=== PATIENT | male | born 1970 | race Caucasian/White ===

== ENCOUNTER 2018-07-21 15:59 | Observation (INO) | payer BC ==
[2018-07-21] MEDS ORDERED: Sodium Chloride 0.9% 10 ML Syringe FLUSH PRN (16:02)
[2018-07-21] MEDS ORDERED: Sodium Chloride 0.9% 2.5 ML Syringe FLUSH PRN (16:02)
--- NOTE | 2018-07-21 16:03 | EDM.PDOC ---
ED HPI GENERAL MEDICAL PROBLEM - General Chief Complaint: Chest Pain Stated Complaint: CHEST PAIN Time Seen by Provider: 07/21/18 16:01 Source of Information: Reports: Patient History Limitations: Reports: No Limitations - History of Present Illness INITIAL COMMENTS - FREE TEXT/NARRATIVE: History of present illness: []Patient has had a cough for 2 months that has been treated with antibiotics without improvement last night at 2 AM he developed chest pain that recurred throughout the night and today. His last episode this afternoon at 2:00 and lasted approximately 30 minutes and has not recurred. His pain is 0/10 on arrival to the ED however while in the ED had an episode of 2/10 chest pain without any other symptoms. Review of systems: As per history of present illness and below otherwise all systems reviewed and negative. Past medical history: As per history of present illness and as reviewed below otherwise noncontributory. Surgical history: As per history of present illness and as reviewed below otherwise noncontributory. Social history: No reported history of drug or alcohol abuse. Family history: As per history of present illness and as reviewed below otherwise noncontributory. Physical exam: General: Well developed, well nourished in NAD HEENT: Atraumatic, normocephalic, pupils reactive, negative for conjunctival pallor or scleral icterus, mucous membranes moist, throat clear, neck supple, nontender, trachea midline. Lungs faint expiratory wheeze right lung [place] to auscultation, distress or accessory muscle use breath sounds equal bilaterally, chest nontender. Heart: S1S2, regular, negative for clicks, rubs, or JVD. No peripheral edema Abdomen: NABS, Soft, nondistended, nontender. Negative for masses or hepatosplenomegaly. Negative for costovertebral tenderness. Pelvis: Stable nontender. Genitourinary: Deferred. Rectal: Deferred. Extremities: Atraumatic, negative for cords or calf pain. Neurovascular unremarkable. No calf tenderness Neuro: Awake, alert, oriented. Cranial nerves II through XII unremarkable. Cerebellum unremarkable. Motor and sensory unremarkable throughout. Exam nonfocal. Skin:warm and dry Diagnostics: EKG, CBC, chemistry, troponin chest [id number] Therapeutics: Aspirin, nitroglycerin ED Course: Patient had a brief episode of 2/10 chest pain with a noted blood pressure of 150/115 at the time. Chest pain lasted 1-2 minutes and subsided spontaneously. He had no other symptoms with the pain. Dr. Ayala was consulted at 17:45 for admit to rule out OR Impression: Chest pain Prescriptions: Plan: Admit Definitive disposition and diagnosis as appropriate pending reevaluation and review of above. left chest Pain Score (Numeric/FACES): 2 - Related Data Allergies Allergy/AdvReac Type Severity Reaction Status Date / Time No Known Allergies Allergy Verified 07/21/18 16:02 Home Meds: Home Meds Atenolol 1 tab PO DAILY 07/21/18 [History] ED ROS GENERAL - Review of Systems Review Of Systems: ROS reveals no pertinent complaints other than HPI. ED EXAM, GENERAL - Physical Exam Exam: See Below (See history of present illness) Course - Vital Signs Last Recorded V/S: Last Vital Signs Temp 97.3 F 07/21/18 16:00 Pulse 88 07/21/18 17:51 Resp 16 07/21/18 17:44 BP 133/91 H 07/21/18 17:51 Pulse Ox 97 07/21/18 17:44 - Orders/Labs/Meds Orders: Active Orders 24 hr Category Date Time Status Admission Status [Patient Status] [ADT] Stat ADT 07/21/18 17:52 Active EKG Documentation Completion [RC] STAT Care 07/21/18 16:03 Active Nitroglycerin [Nitrostat] Med 07/21/18 17:31 Active 0.4 mg SL Q5M PRN Sodium Chloride 0.9% [Saline Flush] Med 07/21/18 16:02 Active 10 ml FLUSH ASDIRECTED PRN Sodium Chloride 0.9% [Saline Flush] Med 07/21/18 16:02 Active 2.5 ml FLUSH ASDIRECTED PRN Saline Lock Insert [OM.PC] Stat Oth 07/21/18 16:02 Ordered Medication Orders Nitroglycerin (Nitrostat) 0.4 mg SL Q5M PRN PRN Reason: Chest Pain Last Admin: 07/21/18 17:43 Dose: 0.4 mg Sodium Chloride (Saline Flush) 10 ml FLUSH ASDIRECTED PRN PRN Reason: Keep Vein Open Last Admin: 07/21/18 16:14 Dose: 10 ml Sodium Chloride (Saline Flush) 2.5 ml FLUSH ASDIRECTED PRN PRN Reason: Keep Vein Open Last Admin: 07/21/18 16:14 Dose: 2.5 ml Labs: Laboratory Tests 07/21/18 07/21/18 07/21/18 Range/Units 16:02 16:02 16:02 WBC 9.84 (4.0-11.0) K/uL RBC 4.83 (4.50-5.90) M/uL Hgb 14.5 (13.0-17.0) g/dL Hct 43.2 (38.0-50.0) % MCV 89.4 (80.0-98.0) fL MCH 30.0 (27.0-32.0) pg MCHC 33.6 (31.0-37.0) g/dL RDW Std Deviation 41.3 (28.0-62.0) fl RDW Coeff of Mile 13 (11.0-15.0) % Plt Count 240 (150-400) K/uL MPV 10.90 (7.40-12.00) fL Neut % (Auto) 53.9 (48.0-80.0) % Lymph % (Auto) 35.0 (16.0-40.0) % [place] % (Auto) 8.1 (0.0-15.0) % Eos % (Auto) 2.6 (0.0-7.0) % Baso % (Auto) 0.4 (0.0-1.5) % Neut # (Auto) 5.3 (1.4-5.7) K/uL Lymph # (Auto) 3.4 H (0.6-2.4) K/uL [place] # (Auto) 0.8 (0.0-0.8) K/uL Eos # (Auto) 0.3 (0.0-0.7) K/uL Baso # (Auto) 0.0 (0.0-0.1) K/uL Nucleated RBC % 0.0 /100WBC Nucleated RBCs # 0 K/uL Sodium 139 (136-148) mmol/L Potassium 4.4 (3.5-5.1) mmol/L Chloride 104 (98-107) mmol/L Carbon Dioxide 28.3 (21.0-32.0) mmol/L BUN 15 (7.0-18.0) mg/dL Creatinine 1.0 (0.8-1.3) mg/dL Est Cr Clr Drug Dosing 83.54 mL/min Estimated GFR (MDRD) > 60.0 ml/min Glucose 120 H (74-106) mg/dL Calcium 9.5 (8.5-10.1) mg/dL Total Bilirubin 0.3 (0.2-1.0) mg/dL AST 16 (15-37) IU/L ALT 36 (14-63) IU/L Alkaline Phosphatase 119 H (46-116) U/L Troponin I < 0.050 (0.000-0.056) ng/mL B-Natriuretic Peptide (<100) PG/ML Total Protein 7.9 (6.4-8.2) g/dL Albumin 3.6 (3.4-5.0) g/dL Globulin 4.3 H (2.6-4.0) g/dL Albumin/Globulin Ratio 0.8 L (0.9-1.6) Meds: Medications Generic Name Dose Route Start Last Admin Trade Name Markq PRN Reason Stop Dose Admin Nitroglycerin 0.4 mg 07/21/18 17:31 07/21/18 17:43 Nitrostat SL 0.4 mg Q5M PRN Administration Chest Pain Sodium Chloride 10 ml 07/21/18 16:02 07/21/18 16:14 Saline Flush FLUSH 10 ml ASDIRECTED PRN Administration Keep Vein Open Sodium Chloride 2.5 ml 07/21/18 16:02 07/21/18 16:14 Saline Flush FLUSH 2.5 ml ASDIRECTED PRN Administration Keep Vein Open Discontinued Medications Generic Name Dose Route Start Last Admin Trade Name Leo PRN Reason Stop Dose Admin Aspirin 324 mg 07/21/18 17:31 07/21/18 17:41 Aspirin PO 07/21/18 17:32 324 mg ONETIME ONE Administration Metoprolol Succinate 25 mg 07/21/18 17:37 07/21/18 17:51 Toprol Xl PO 07/21/18 17:38 25 mg ONETIME ONE Administration Departure - Departure Time of Disposition: 17:47 Disposition: Refer to Observation Condition: Good Clinical Impression: Hypertensive urgency Chest pain Qualifiers: Chest pain type: unspecified Qualified Code(s): R07.9 - Chest pain, unspecified Referrals: PCP,None [Primary Care Provider] - Forms: ED Department Discharge - My Orders Last 24 Hours: My Active Orders 07/21/18 16:02 Sodium Chloride 0.9% [Saline Flush] 10 ml FLUSH ASDIRECTED PRN Sodium Chloride 0.9% [Saline Flush] 2.5 ml FLUSH ASDIRECTED PRN Saline Lock Insert [OM.PC] Stat 07/21/18 16:03 EKG Documentation Completion [RC] STAT 07/21/18 17:31 Nitroglycerin [Nitrostat] 0.4 mg SL Q5M PRN 07/21/18 17:52 Admission Status [Patient Status] [ADT] Stat - Assessment/Plan Last 24 Hours: My Active Orders 07/21/18 16:02 Sodium Chloride 0.9% [Saline Flush] 10 ml FLUSH ASDIRECTED PRN Sodium Chloride 0.9% [Saline Flush] 2.5 ml FLUSH ASDIRECTED PRN Saline Lock Insert [OM.PC] Stat 07/21/18 16:03 EKG Documentation Completion [RC] STAT 07/21/18 17:31 Nitroglycerin [Nitrostat] 0.4 mg SL Q5M PRN 07/21/18 17:52 Admission Status [Patient Status] [ADT] Stat
--- NOTE | 2018-07-21 16:29 | CR ---
EXAMINATION: Portable chest radiograph. HISTORY: Shortness of breath. FINDINGS: The trachea is midline. The cardiomediastinal silhouette is within normal limits. No pulmonary infiltrates, effusions or pneumothorax. Osseous structures appear unremarkable. IMPRESSION: No acute cardiopulmonary process.
[2018-07-21 17:27] LABS: CHLORIDE,CL 104 mmol/L (98-107); SODIUM,NA 139 mmol/L (136-148)
[2018-07-21] MEDS ORDERED: Aspirin 81 MG Tab.Chew PO ONE (17:31)
[2018-07-21] MEDS ORDERED: Nitroglycerin 0.4 MG Tab.SL SL PRN ×2 (17:31→18:08)
[2018-07-21] MEDS ORDERED: Metoprolol Succinate 25 MG Tab.ER PO ONE (17:37)
[2018-07-21] MEDS ORDERED: Ondansetron 4 MG Tab.DIS PO PRN (18:04)
[2018-07-21] MEDS ORDERED: Polyethylene Glycol 3350 Powder 17 GM Packet PO PRN (18:04)
[2018-07-21] MEDS ORDERED: Ondansetron 4 MG/2 ML SDV IVPUSH PRN (18:04)
[2018-07-21] MEDS ORDERED: Albuterol/Ipratropium 3.0-0.5 MG/3 ML Neb Soln NEB PRN (18:04)
[2018-07-21] MEDS ORDERED: Acetaminophen 325 MG Tab PO PRN (18:04)
[2018-07-21] MEDS ORDERED: Docusate Sodium 100 MG Cap PO PRN (18:04)
[2018-07-21] MEDS ORDERED: Temazepam 15 MG Cap PO PRN (18:04)
[2018-07-21] MEDS ORDERED: Ibuprofen 800 MG Tab PO PRN (18:04)
[2018-07-21] MEDS ORDERED: Ketorolac 30 MG/ML SDV IV PRN (18:04)
[2018-07-21] MEDS ORDERED: Morphine 10 MG/ML Syringe IVPUSH PRN (18:04)
[2018-07-21] MEDS ORDERED: Albuterol 0.083% 2.5 MG/3 ML Neb Soln NEB ONE (18:07)
[2018-07-21] MEDS ORDERED: Labetalol 20 MG/4 ML Syringe IVPUSH ONE (18:13)
[2018-07-21] MEDS ORDERED: Enoxaparin 40 MG/0.4 ML Syringe SUBCUT SCH (18:15)
--- NOTE | 2018-07-21 18:26 | PCM.HP ---
<Robert LeeandaLuis - Last Filed: 07/21/18 18:15> H&P History of Present Illness - General Date of Service: 07/21/18 Admit Problem/Dx: Admission Diagnosis/Problem Admission Diagnosis/Problem Chest pain - History of Present Illness Initial Comments - Free Text/Narative: Jeffery Sinclair is a 48 y/o male who presents today to the ED complaining of chest pain. He states that he started coughing this morning and since then he has had chest pain rated 8/10, now resolved. No diaphoresis or radiation to left arm. In addition, he states he has been having on and off coughing for the past 2 months. He denies any history of asthma. He is a former smoker, quit 10 years ago. No fevers. He is originally from [place]. Has no PCP in town. There is a family history of heart disease. He denies any diabetes or dyslipidemia. Denies acid reflux. No allergies. No nausea, vomiting, abdominal pain, dysuria, diarrhea. left chest Pain Score (Numeric/FACES): 2 - Related Data Allergies/Adverse Reactions: Allergies Allergy/AdvReac Type Severity Reaction Status Date / Time No Known Allergies Allergy Verified 07/21/18 16:02 Home Medications: Home Meds Aspirin 81 mg PO DAILY tab.chew 07/22/18 [Rx] Losartan [Cozaar] 50 mg PO DAILY #30 tab 07/22/18 [Rx] Omeprazole 20 mg PO DAILY #30 cap.sr 07/22/18 [Rx] Past Medical History HEENT History: Reports: None Cardiovascular History: Reports: Hypertension Respiratory History: Reports: None Genitourinary History: Reports: None Musculoskeletal History: Reports: None Neurological History: Reports: None Psychiatric History: Reports: None Endocrine/Metabolic History: Reports: None Hematologic History: Reports: None Immunologic History: Reports: None Oncologic (Cancer) History: Reports: None Dermatologic History: Reports: None - Infectious Disease History Infectious Disease History: Reports: Chicken Pox - Past Surgical History Head Surgeries/Procedures: Reports: None GI Surgical History: Reports: Appendectomy Social & Family History - Family History Family Medical History: Noncontributory - Tobacco Use Smoking Status *Q: Never Smoker Second Hand Smoke Exposure: No - Caffeine Use Caffeine Use: Reports: None - Recreational Drug Use Recreational Drug Use: No H&P Review of Systems - Review of Systems: Review Of Systems: ROS reveals no pertinent complaints other than HPI. Exam - Exam Exam: See Below - Vital Signs Vital Signs: Last Vital Signs Temp 36.3 C 07/21/18 16:00 Pulse 88 07/21/18 17:51 Resp 16 07/21/18 17:44 BP 133/91 H 07/21/18 17:51 Pulse Ox 97 07/21/18 17:44 Weight: 117.027 kg - Exam General: Alert, Oriented, Cooperative HEENT: Conjunctiva Clear, Mucosa Moist & [place], Posterior Pharynx Clear Lungs: Clear to Auscultation, Normal Respiratory Effort, Wheezing Cardiovascular: Regular Rate, Regular Rhythm GI/Abdominal Exam: Normal Bowel Sounds, Soft, Non-Tender, No Distention Back Exam: Normal Inspection Extremities: Normal Inspection, Non-Tender, No Pedal Edema Skin: Warm, Dry Neurological: Cranial Nerves Intact Neuro Extensive - Mental Status: Alert, Oriented x3 - Patient Data Lab Results Last 24 hrs: Laboratory Results - last 24 hr 07/21/18 07/21/18 07/21/18 Range/Units 16:02 16:02 16:02 WBC 9.84 (4.0-11.0) K/uL RBC 4.83 (4.50-5.90) M/uL Hgb 14.5 (13.0-17.0) g/dL Hct 43.2 (38.0-50.0) % MCV 89.4 (80.0-98.0) fL MCH 30.0 (27.0-32.0) pg MCHC 33.6 (31.0-37.0) g/dL RDW Std Deviation 41.3 (28.0-62.0) fl RDW Coeff of Mile 13 (11.0-15.0) % Plt Count 240 (150-400) K/uL MPV 10.90 (7.40-12.00) fL Neut % (Auto) 53.9 (48.0-80.0) % Lymph % (Auto) 35.0 (16.0-40.0) % [place] % (Auto) 8.1 (0.0-15.0) % Eos % (Auto) 2.6 (0.0-7.0) % Baso % (Auto) 0.4 (0.0-1.5) % Neut # (Auto) 5.3 (1.4-5.7) K/uL Lymph # (Auto) 3.4 H (0.6-2.4) K/uL [place] # (Auto) 0.8 (0.0-0.8) K/uL Eos # (Auto) 0.3 (0.0-0.7) K/uL Baso # (Auto) 0.0 (0.0-0.1) K/uL Nucleated RBC % 0.0 /100WBC Nucleated RBCs # 0 K/uL Sodium 139 (136-148) mmol/L Potassium 4.4 (3.5-5.1) mmol/L Chloride 104 (98-107) mmol/L Carbon Dioxide 28.3 (21.0-32.0) mmol/L BUN 15 (7.0-18.0) mg/dL Creatinine 1.0 (0.8-1.3) mg/dL Est Cr Clr Drug Dosing 83.54 mL/min Estimated GFR (MDRD) > 60.0 ml/min Glucose 120 H (74-106) mg/dL Calcium 9.5 (8.5-10.1) mg/dL Total Bilirubin 0.3 (0.2-1.0) mg/dL AST 16 (15-37) IU/L ALT 36 (14-63) IU/L Alkaline Phosphatase 119 H (46-116) U/L Troponin I < 0.050 (0.000-0.056) ng/mL B-Natriuretic Peptide (<100) PG/ML Total Protein 7.9 (6.4-8.2) g/dL Albumin 3.6 (3.4-5.0) g/dL Globulin 4.3 H (2.6-4.0) g/dL Albumin/Globulin Ratio 0.8 L (0.9-1.6) Result Diagrams: 07/21/18 16:02 07/21/18 16:02 Problem List Initiated/Reviewed/Updated: Yes Orders Last 24hrs: Active Orders 24 hr Category Date Time Status Patient Status [ADT] Routine ADT 07/21/18 18:02 Ordered Bedrest Bathroom Privileges [RC] ASDIRECTED Care 07/21/18 18:02 Ordered Cardiac Monitoring [RC] CONTINUOUS Care 07/21/18 18:03 Ordered EKG Documentation Completion [RC] STAT Care 07/21/18 16:03 Active Oxygen Therapy [RC] PRN Care 07/21/18 18:02 Ordered RT Aerosol Therapy [RC] ASDIRECTED Care 07/21/18 18:07 Ordered RT Aerosol Therapy [RC] ASDIRECTED Care 07/21/18 18:08 Ordered VTE/DVT Education [RC] PER UNIT ROUTINE Care 07/21/18 18:02 Ordered Vital Signs [RC] Q4H Care 07/21/18 18:02 Ordered Heart Healthy Diet [DIET] Diet 07/22/18 Breakfast Ordered Echo 2D wo Cont [US] Stat Exams 07/22/18 08:00 Ordered COMPREHENSIVE METABOLIC PN,CMP [CHEM] AM Lab 07/22/18 05:11 Ordered GLYCOSYLATED HEMOGLOBIN,HGBA1C [CHEM] AM Lab 07/22/18 05:11 Ordered LIPID PANEL [CHEM] AM Lab 07/22/18 05:11 Ordered TROPONIN I [CHEM] Q6H Lab 07/21/18 23:00 Ordered TROPONIN I [CHEM] Q6H Lab 07/22/18 05:00 Ordered TSH [CHEM] AM Lab 07/22/18 05:11 Ordered Acetaminophen [Tylenol] Med 07/21/18 18:04 Ordered 650 mg PO Q4H PRN Albuterol/Ipratropium [DuoNeb 3.0-0.5 MG/3 ML] Med 07/21/18 18:04 Ordered 3 ml NEB Q4HRRT PRN Aspirin Med 07/22/18 09:00 Ordered 81 mg PO DAILY Docusate Sodium [Colace] Med 07/21/18 18:04 Ordered 100 mg PO BID PRN Enoxaparin [Lovenox] Med 07/21/18 18:15 Ordered 40 mg SUBCUT Q24H Ibuprofen [Motrin] Med 07/21/18 18:04 Ordered 800 mg PO Q6H PRN Ketorolac [Toradol] Med 07/21/18 18:04 Ordered 30 mg IV Q6H PRN Morphine Med 07/21/18 18:04 Ordered 2 mg IVPUSH Q2H PRN Nitroglycerin [Nitrostat] Med 07/21/18 17:31 Active 0.4 mg SL Q5M PRN Nitroglycerin [Nitrostat] Med 07/21/18 18:08 Ordered 0.4 mg SL Q5M PRN Ondansetron [Zofran ODT] Med 07/21/18 18:04 Ordered 4 mg PO Q4H PRN Ondansetron [Zofran] Med 07/21/18 18:04 Ordered 4 mg IVPUSH Q4H PRN Polyethylene Glycol 3350 [MiraLAX] Med 07/21/18 18:04 Ordered 17 gm PO DAILY PRN Sodium Chloride 0.9% [Saline Flush] Med 07/21/18 16:02 Active 10 ml FLUSH ASDIRECTED PRN Sodium Chloride 0.9% [Saline Flush] Med 07/21/18 16:02 Active 2.5 ml FLUSH ASDIRECTED PRN Temazepam [Restoril] Med 07/21/18 18:04 Ordered 15 mg PO BEDTIME PRN Saline Lock Insert [OM.PC] Stat Oth 07/21/18 16:02 Ordered Resuscitation Status Routine Resus Stat 07/21/18 18:02 Ordered Medication Orders Acetaminophen (Tylenol) 650 mg PO Q4H PRN PRN Reason: Pain (Mild 1-3)/fever Albuterol/Ipratropium (Duoneb 3.0-0.5 Mg/3 Ml) 3 ml NEB Q4HRRT PRN PRN Reason: Shortness Of Breath/wheezing Aspirin (Aspirin) 81 mg PO DAILY HAIR Docusate Sodium (Colace) 100 mg PO BID PRN PRN Reason: Constipation Enoxaparin Sodium (Lovenox) 40 mg SUBCUT Q24H HAIR Ibuprofen (Motrin) 800 mg PO Q6H PRN PRN Reason: Pain (mild 1-3) Ketorolac Tromethamine (Toradol) 30 mg IV Q6H PRN PRN Reason: Pain (moderate 4-6) Morphine Sulfate (Morphine) 2 mg IVPUSH Q2H PRN PRN Reason: Pain (severe 7-10) Stop: 07/22/18 18:05 Nitroglycerin (Nitrostat) 0.4 mg SL Q5M PRN PRN Reason: Chest Pain Last Admin: 07/21/18 17:43 Dose: 0.4 mg Nitroglycerin (Nitrostat) 0.4 mg SL Q5M PRN PRN Reason: Chest Pain Ondansetron HCl (Zofran Odt) 4 mg PO Q4H PRN PRN Reason: nausea, able to take PO Ondansetron HCl (Zofran) 4 mg IVPUSH Q4H PRN PRN Reason: Nausea Polyethylene Glycol (Miralax) 17 gm PO DAILY PRN PRN Reason: Constipation Sodium Chloride (Saline Flush) 10 ml FLUSH ASDIRECTED PRN PRN Reason: Keep Vein Open Last Admin: 07/21/18 16:14 Dose: 10 ml Sodium Chloride (Saline Flush) 2.5 ml FLUSH ASDIRECTED PRN PRN Reason: Keep Vein Open Last Admin: 07/21/18 16:14 Dose: 2.5 ml Temazepam (Restoril) 15 mg PO BEDTIME PRN PRN Reason: Sleep Assessment/Plan Comment:: A: 1. Chest pain, r/o ACS 2. Hypertension 3. Bilateral wheezing 4. Morbid obesity P: 1. Admit as observation to the medical floor. 2. Vitals, I/O per floor routine. Telemetry. 3. Activity: bed rest with bathroom privileges 4. Diet: Cardiac 5. DVT prophylaxis: Lovenox 6. Code status: FULL CODE 1. Chest pain. I suspect that his chest pain is secondary to his coughing spells. He may have underlying reactive airways since he has expiratory wheezing. However, he has a family history of heart disease, hypertension and former smoker. Will trend troponins and order Echo for the morning. Check HgA1c and lipid panel in the morning. 2. Hypertension. Ordered labetalol IV PRN for SBP>160 or DBP>90. Will recheck in the morning. Dispo: likely dc tomorrow. <Fidel Ayala - Last Filed: 07/22/18 07:58> H&P History of Present Illness - General Admit Problem/Dx: Admission Diagnosis/Problem Admission Diagnosis/Problem Chest pain I have seen and examined the patient independently of medical education manager. I have discussed the case with the resident. I agree with the assessment and plan of care as outlined for this patient. Please see orders. Exam - Vital Signs Vital Signs: Last Vital Signs Temp 36.2 C 07/22/18 04:00 Pulse 75 07/22/18 04:00 Resp 19 07/22/18 04:00 BP 125/79 07/22/18 04:00 Pulse Ox 96 07/22/18 04:00 - Patient Data Lab Results Last 24 hrs: Laboratory Results - last 24 hr 07/21/18 07/21/18 07/21/18 Range/Units 16:02 16:02 16:02 WBC 9.84 (4.0-11.0) K/uL RBC 4.83 (4.50-5.90) M/uL Hgb 14.5 (13.0-17.0) g/dL Hct 43.2 (38.0-50.0) % MCV 89.4 (80.0-98.0) fL MCH 30.0 (27.0-32.0) pg MCHC 33.6 (31.0-37.0) g/dL RDW Std Deviation 41.3 (28.0-62.0) fl RDW Coeff of Mile 13 (11.0-15.0) % Plt Count 240 (150-400) K/uL MPV 10.90 (7.40-12.00) fL Neut % (Auto) 53.9 (48.0-80.0) % Lymph % (Auto) 35.0 (16.0-40.0) % [place] % (Auto) 8.1 (0.0-15.0) % Eos % (Auto) 2.6 (0.0-7.0) % Baso % (Auto) 0.4 (0.0-1.5) % Neut # (Auto) 5.3 (1.4-5.7) K/uL Lymph # (Auto) 3.4 H (0.6-2.4) K/uL [place] # (Auto) 0.8 (0.0-0.8) K/uL Eos # (Auto) 0.3 (0.0-0.7) K/uL Baso # (Auto) 0.0 (0.0-0.1) K/uL Nucleated RBC % 0.0 /100WBC Nucleated RBCs # 0 K/uL Sodium 139 (136-148) mmol/L Potassium 4.4 (3.5-5.1) mmol/L Chloride 104 (98-107) mmol/L Carbon Dioxide 28.3 (21.0-32.0) mmol/L BUN 15 (7.0-18.0) mg/dL Creatinine 1.0 (0.8-1.3) mg/dL Est Cr Clr Drug Dosing 83.54 mL/min Estimated GFR (MDRD) > 60.0 ml/min Glucose 120 H (74-106) mg/dL Hemoglobin A1c (4.5-6.2) % Calcium 9.5 (8.5-10.1) mg/dL Total Bilirubin 0.3 (0.2-1.0) mg/dL AST 16 (15-37) IU/L ALT 36 (14-63) IU/L Alkaline Phosphatase 119 H (46-116) U/L Troponin I < 0.050 (0.000-0.056) ng/mL B-Natriuretic Peptide (<100) PG/ML Total Protein 7.9 (6.4-8.2) g/dL Albumin 3.6 (3.4-5.0) g/dL Globulin 4.3 H (2.6-4.0) g/dL Albumin/Globulin Ratio 0.8 L (0.9-1.6) Triglycerides (0-200) mg/dL Cholesterol (50-200) mg/dL LDL Cholesterol, Calc (60-180) mg/dL VLDL Cholesterol (5-55) mg/dL HDL Cholesterol (40-60) mg/dL Cholesterol/HDL Ratio (3.3-6.0) TSH 3rd Generation (0.36-3.74) uIU/mL 07/21/18 07/22/18 07/22/18 Range/Units 22:46 05:45 05:45 WBC (4.0-11.0) K/uL RBC (4.50-5.90) M/uL Hgb (13.0-17.0) g/dL Hct (38.0-50.0) % MCV (80.0-98.0) fL MCH (27.0-32.0) pg MCHC (31.0-37.0) g/dL RDW Std Deviation (28.0-62.0) fl RDW Coeff of Mile (11.0-15.0) % Plt Count (150-400) K/uL MPV (7.40-12.00) fL Neut % (Auto) (48.0-80.0) % Lymph % (Auto) (16.0-40.0) % [place] % (Auto) (0.0-15.0) % Eos % (Auto) (0.0-7.0) % Baso % (Auto) (0.0-1.5) % Neut # (Auto) (1.4-5.7) K/uL Lymph # (Auto) (0.6-2.4) K/uL [place] # (Auto) (0.0-0.8) K/uL Eos # (Auto) (0.0-0.7) K/uL Baso # (Auto) (0.0-0.1) K/uL Nucleated RBC % /100WBC Nucleated RBCs # K/uL Sodium 141 (136-148) mmol/L Potassium 4.2 (3.5-5.1) mmol/L Chloride 105 (98-107) mmol/L Carbon Dioxide 27.5 (21.0-32.0) mmol/L BUN 14 (7.0-18.0) mg/dL Creatinine 1.0 (0.8-1.3) mg/dL Est Cr Clr Drug Dosing 83.54 mL/min Estimated GFR (MDRD) > 60.0 ml/min Glucose 107 H (74-106) mg/dL Hemoglobin A1c (4.5-6.2) % Calcium 9.1 (8.5-10.1) mg/dL Total Bilirubin 0.4 (0.2-1.0) mg/dL AST 14 L (15-37) IU/L ALT 35 (14-63) IU/L Alkaline Phosphatase 94 (46-116) U/L Troponin I < 0.050 < 0.050 (0.000-0.056) ng/mL B-Natriuretic Peptide (<100) PG/ML Total Protein 6.9 (6.4-8.2) g/dL Albumin 3.1 L (3.4-5.0) g/dL Globulin 3.8 (2.6-4.0) g/dL Albumin/Globulin Ratio 0.8 L (0.9-1.6) Triglycerides 109 (0-200) mg/dL Cholesterol 207 H (50-200) mg/dL LDL Cholesterol, Calc 137 (60-180) mg/dL VLDL Cholesterol 21 (5-55) mg/dL HDL Cholesterol 48 (40-60) mg/dL Cholesterol/HDL Ratio 4.3 (3.3-6.0) TSH 3rd Generation 1.73 (0.36-3.74) uIU/mL 07/22/18 Range/Units 05:45 WBC (4.0-11.0) K/uL RBC (4.50-5.90) M/uL Hgb (13.0-17.0) g/dL Hct (38.0-50.0) % MCV (80.0-98.0) fL MCH (27.0-32.0) pg MCHC (31.0-37.0) g/dL RDW Std Deviation (28.0-62.0) fl RDW Coeff of Mile (11.0-15.0) % Plt Count (150-400) K/uL MPV (7.40-12.00) fL Neut % (Auto) (48.0-80.0) % Lymph % (Auto) (16.0-40.0) % [place] % (Auto) (0.0-15.0) % Eos % (Auto) (0.0-7.0) % Baso % (Auto) (0.0-1.5) % Neut # (Auto) (1.4-5.7) K/uL Lymph # (Auto) (0.6-2.4) K/uL [place] # (Auto) (0.0-0.8) K/uL Eos # (Auto) (0.0-0.7) K/uL Baso # (Auto) (0.0-0.1) K/uL Nucleated RBC % /100WBC Nucleated RBCs # K/uL Sodium (136-148) mmol/L Potassium (3.5-5.1) mmol/L Chloride (98-107) mmol/L Carbon Dioxide (21.0-32.0) mmol/L BUN (7.0-18.0) mg/dL Creatinine (0.8-1.3) mg/dL Est Cr Clr Drug Dosing mL/min Estimated GFR (MDRD) ml/min Glucose (74-106) mg/dL Hemoglobin A1c 6.5 H (4.5-6.2) % Calcium (8.5-10.1) mg/dL Total Bilirubin (0.2-1.0) mg/dL AST (15-37) IU/L ALT (14-63) IU/L Alkaline Phosphatase (46-116) U/L Troponin I (0.000-0.056) ng/mL B-Natriuretic Peptide (<100) PG/ML Total Protein (6.4-8.2) g/dL Albumin (3.4-5.0) g/dL Globulin (2.6-4.0) g/dL Albumin/Globulin Ratio (0.9-1.6) Triglycerides (0-200) mg/dL Cholesterol (50-200) mg/dL LDL Cholesterol, Calc (60-180) mg/dL VLDL Cholesterol (5-55) mg/dL HDL Cholesterol (40-60) mg/dL Cholesterol/HDL Ratio (3.3-6.0) TSH 3rd Generation (0.36-3.74) uIU/mL Result Diagrams: 07/21/18 16:02 07/22/18 05:45 - Problem List (1) Chest pain SNOMED Code(s): 12366111 ICD Code: R07.9 - CHEST PAIN, UNSPECIFIED Status: Resolved Priority: High Current Visit: Yes Qualifiers: Chest pain type: unspecified Qualified Code(s): R07.9 - Chest pain, unspecified (2) Hypertensive urgency SNOMED Code(s): 567560261 ICD Code: I16.0 - HYPERTENSIVE URGENCY Status: Acute Current Visit: Yes (3) Prediabetes SNOMED Code(s): 881578270 ICD Code: R73.03 - PREDIABETES Status: Chronic Priority: High Current Visit: Yes (4) Hyperlipidemia SNOMED Code(s): 83925885 ICD Code: E78.5 - HYPERLIPIDEMIA, UNSPECIFIED Status: Acute Current Visit : Yes Qualifiers: Hyperlipidemia type: mixed hyperlipidemia Qualified Code(s): E78.2 - Mixed hyperlipidemia Orders Last 24hrs: Active Orders 24 hr Category Date Time Status Patient Status [ADT] Routine ADT 07/21/18 18:02 Active Bedrest Bathroom Privileges [RC] ASDIRECTED Care 07/21/18 18:02 Active Cardiac Monitoring [RC] Q8H Care 07/21/18 18:03 Active EKG Documentation Completion [RC] STAT Care 07/21/18 16:03 Active Oxygen Therapy [RC] PRN Care 07/21/18 18:02 Active RT Aerosol Therapy [RC] ASDIRECTED Care 07/21/18 18:07 Active Ready for Discharge [RC] PER UNIT ROUTINE Care 07/22/18 06:53 Active VTE/DVT Education [RC] PER UNIT ROUTINE Care 07/21/18 18:02 Active Heart Healthy Diet [DIET] Diet 07/22/18 Breakfast Active Echo Comp wo Cont [US] Stat Exams 07/22/18 08:00 Ordered Acetaminophen [Tylenol] Med 07/21/18 18:04 Active 650 mg PO Q4H PRN Albuterol/Ipratropium [DuoNeb 3.0-0.5 MG/3 ML] Med 07/21/18 18:04 Active 3 ml NEB Q4HRRT PRN Aspirin Med 07/22/18 09:00 Active 81 mg PO DAILY Docusate Sodium [Colace] Med 07/21/18 18:04 Active 100 mg PO BID PRN Enoxaparin [Lovenox] Med 07/21/18 18:15 Active 40 mg SUBCUT Q24H Ibuprofen [Motrin] Med 07/21/18 18:04 Active 800 mg PO Q6H PRN Ketorolac [Toradol] Med 07/21/18 18:04 Active 30 mg IV Q6H PRN Morphine Med 07/21/18 18:04 Active 2 mg IVPUSH Q2H PRN Nitroglycerin [Nitrostat] Med 07/21/18 17:31 Active 0.4 mg SL Q5M PRN Nitroglycerin [Nitrostat] Med 07/21/18 18:08 Active 0.4 mg SL Q5M PRN Ondansetron [Zofran ODT] Med 07/21/18 18:04 Active 4 mg PO Q4H PRN Ondansetron [Zofran] Med 07/21/18 18:04 Active 4 mg IVPUSH Q4H PRN Polyethylene Glycol 3350 [MiraLAX] Med 07/21/18 18:04 Active 17 gm PO DAILY PRN Sodium Chloride 0.9% [Saline Flush] Med 07/21/18 16:02 Active 10 ml FLUSH ASDIRECTED PRN Sodium Chloride 0.9% [Saline Flush] Med 07/21/18 16:02 Active 2.5 ml FLUSH ASDIRECTED PRN Temazepam [Restoril] Med 07/21/18 18:04 Active 15 mg PO BEDTIME PRN Saline Lock Insert [OM.PC] Stat Oth 07/21/18 16:02 Ordered Resuscitation Status Routine Resus Stat 07/21/18 18:02 Ordered Medication Orders Acetaminophen (Tylenol) 650 mg PO Q4H PRN PRN Reason: Pain (Mild 1-3)/fever Albuterol/Ipratropium (Duoneb 3.0-0.5 Mg/3 Ml) 3 ml NEB Q4HRRT PRN PRN Reason: Shortness Of Breath/wheezing Aspirin (Aspirin) 81 mg PO DAILY HAIR Docusate Sodium (Colace) 100 mg PO BID PRN PRN Reason: Constipation Enoxaparin Sodium (Lovenox) 40 mg SUBCUT Q24H HAIR Last Admin: 07/21/18 18:39 Dose: 40 mg Ibuprofen (Motrin) 800 mg PO Q6H PRN PRN Reason: Pain (mild 1-3) Ketorolac Tromethamine (Toradol) 30 mg IV Q6H PRN PRN Reason: Pain (moderate 4-6) Morphine Sulfate (Morphine) 2 mg IVPUSH Q2H PRN PRN Reason: Pain (severe 7-10) Stop: 07/22/18 18:05 Nitroglycerin (Nitrostat) 0.4 mg SL Q5M PRN PRN Reason: Chest Pain Last Admin: 07/21/18 17:43 Dose: 0.4 mg Nitroglycerin (Nitrostat) 0.4 mg SL Q5M PRN PRN Reason: Chest Pain Ondansetron HCl (Zofran Odt) 4 mg PO Q4H PRN PRN Reason: nausea, able to take PO Ondansetron HCl (Zofran) 4 mg IVPUSH Q4H PRN PRN Reason: Nausea Polyethylene Glycol (Miralax) 17 gm PO DAILY PRN PRN Reason: Constipation Sodium Chloride (Saline Flush) 10 ml FLUSH ASDIRECTED PRN PRN Reason: Keep Vein Open Last Admin: 07/21/18 16:14 Dose: 10 ml Sodium Chloride (Saline Flush) 2.5 ml FLUSH ASDIRECTED PRN PRN Reason: Keep Vein Open Last Admin: 07/21/18 16:14 Dose: 2.5 ml Temazepam (Restoril) 15 mg PO BEDTIME PRN PRN Reason: Sleep
[2018-07-22 06:15] LABS: HEMOGLOBIN A1C 6.5 % (4.5-6.2)
[2018-07-22 06:36] LABS: CHLORIDE,CL 105 mmol/L (98-107); SODIUM,NA 141 mmol/L (136-148)
--- NOTE | 2018-07-22 06:54 | PCM.DCSUM1 ---
Discharge Summary - Hospital Course HPI Initial Comments: Admitted for chest pain Diagnosis: Stroke: No - Discharge Data Discharge Date: 07/22/18 Discharge Disposition: Home, Self-Care 01 Condition: Good - Discharge Diagnosis/Problem(s) (1) Chest pain SNOMED Code(s): 07442699 ICD Code: R07.9 - CHEST PAIN, UNSPECIFIED Status: Resolved Priority: High Current Visit: Yes Qualifiers: Chest pain type: unspecified Qualified Code(s): R07.9 - Chest pain, unspecified (2) Hypertensive urgency SNOMED Code(s): 957986851 ICD Code: I16.0 - HYPERTENSIVE URGENCY Status: Acute Current Visit: Yes (3) Prediabetes SNOMED Code(s): 290076037 ICD Code: R73.03 - PREDIABETES Status: Chronic Priority: High Current Visit: Yes (4) Hyperlipidemia SNOMED Code(s): 48036749 ICD Code: E78.5 - HYPERLIPIDEMIA, UNSPECIFIED Status: Acute Current Visit : Yes Qualifiers: Hyperlipidemia type: mixed hyperlipidemia Qualified Code(s): E78.2 - Mixed hyperlipidemia - Patient Summary/Data Hospital Course: The patient is 48-year-old gentleman who presented to the emergency department with a complaint of left-sided chest pain. Patient reports that for the past couple months that he has had a cough and a various times has been on antibiotics. The patient was also started on lisinopril for hypertension 2 months ago. Further, the patient says that he has been having problems with stress and anxiety. The patient was admitted to observation for telemetry, troponin testing and monitoring of his vital signs. Telemetry overnight did not show any incidences and the patient had 3 sets of troponins which were all undetectable. Initially the patient had a CBC which was essentially normal. He had a basic metabolic panel which showed normal renal function and a lipid panel was also performed. It demonstrated a relatively mild elevation in his cholesterol at 207 mg/dL. His LDL had been calculated at 137 mg per deciliter. Further the patient also says that he has occasional episodes of heartburn. The origin of the patient's cough can be either lisinopril or occult reflux the vocal cords. The patient will have his lisinopril is continued and he'll be started on losartan 50 mg by mouth daily for control of his hypertension. The patient also had been given a prescription for omeprazole for 1 month to help with occult reflux. I had a long discussion with the patient regarding all of these and he is to follow-up with her primary care physician. Should also be noted that the patient did have a hemoglobin A1c of 6.5 which would indicate prediabetes. He should have a diabetic diet as tolerated. He otherwise has been tolerating his diet as well today. The patient also has been recommended to continue with activity as tolerated. The patient has been hemodynamically stable and he has been discharged from hospitalization with the recommendations listed above. - Patient Instructions Diet: Heart Healthy Diet, Diabetic Diet - Discharge Plan *PRESCRIPTION DRUG MONITORING PROGRAM REVIEWED*: No *COPY OF PRESCRIPTION DRUG MONITORING REPORT IN PATIENT MENDEL: No Prescriptions/Med Rec: Losartan [Cozaar] 50 mg PO DAILY #30 tab Omeprazole 20 mg PO DAILY #30 cap.sr Home Medications: Home Meds Aspirin 81 mg PO DAILY tab.chew 07/22/18 [Rx] Losartan [Cozaar] 50 mg PO DAILY #30 tab 07/22/18 [Rx] Omeprazole 20 mg PO DAILY #30 cap.sr 07/22/18 [Rx] Patient Handouts: Nonspecific Chest Pain Forms: ED Department Discharge Referrals: Luis Laughlin MD [Resident] - - Discharge Summary/Plan Comment DC Time >30 min.: Yes - General Info Date of Service: 07/22/18 Admission Dx/Problem (Free Text: Admission Diagnosis/Problem Admission Diagnosis/Problem Chest pain Functional Status: Reports: Pain Controlled, Tolerating Diet - Review of Systems General: Reports: No Symptoms HEENT: Reports: No Symptoms Pulmonary: Reports: Cough Cardiovascular: Reports: No Symptoms Gastrointestinal: Reports: No Symptoms Genitourinary: Reports: No Symptoms Musculoskeletal: Reports: No Symptoms Skin: Reports: No Symptoms Neurological: Reports: No Symptoms Psychiatric: Reports: No Symptoms - Patient Data Vitals - Most Recent: Last Vital Signs Temp 36.2 C 07/22/18 04:00 Pulse 75 07/22/18 04:00 Resp 19 07/22/18 04:00 BP 125/79 07/22/18 04:00 Pulse Ox 96 07/22/18 04:00 Weight - Most Recent: 117.027 kg I&O - Last 24 hours: Intake & Output 07/21/18 07/21/18 07/22/18 14:59 22:59 06:59 Intake Total 500 Output Total 450 Balance 50 Lab Results - Last 24 hrs: Laboratory Results - last 24 hr 07/21/18 07/21/18 07/21/18 Range/Units 16:02 16:02 16:02 WBC 9.84 (4.0-11.0) K/uL RBC 4.83 (4.50-5.90) M/uL Hgb 14.5 (13.0-17.0) g/dL Hct 43.2 (38.0-50.0) % MCV 89.4 (80.0-98.0) fL MCH 30.0 (27.0-32.0) pg MCHC 33.6 (31.0-37.0) g/dL RDW Std Deviation 41.3 (28.0-62.0) fl RDW Coeff of Mile 13 (11.0-15.0) % Plt Count 240 (150-400) K/uL MPV 10.90 (7.40-12.00) fL Neut % (Auto) 53.9 (48.0-80.0) % Lymph % (Auto) 35.0 (16.0-40.0) % Boyd % (Auto) 8.1 (0.0-15.0) % Eos % (Auto) 2.6 (0.0-7.0) % Baso % (Auto) 0.4 (0.0-1.5) % Neut # (Auto) 5.3 (1.4-5.7) K/uL Lymph # (Auto) 3.4 H (0.6-2.4) K/uL Boyd # (Auto) 0.8 (0.0-0.8) K/uL Eos # (Auto) 0.3 (0.0-0.7) K/uL Baso # (Auto) 0.0 (0.0-0.1) K/uL Nucleated RBC % 0.0 /100WBC Nucleated RBCs # 0 K/uL Sodium 139 (136-148) mmol/L Potassium 4.4 (3.5-5.1) mmol/L Chloride 104 (98-107) mmol/L Carbon Dioxide 28.3 (21.0-32.0) mmol/L BUN 15 (7.0-18.0) mg/dL Creatinine 1.0 (0.8-1.3) mg/dL Est Cr Clr Drug Dosing 83.54 mL/min Estimated GFR (MDRD) > 60.0 ml/min Glucose 120 H (74-106) mg/dL Hemoglobin A1c (4.5-6.2) % Calcium 9.5 (8.5-10.1) mg/dL Total Bilirubin 0.3 (0.2-1.0) mg/dL AST 16 (15-37) IU/L ALT 36 (14-63) IU/L Alkaline Phosphatase 119 H (46-116) U/L Troponin I < 0.050 (0.000-0.056) ng/mL B-Natriuretic Peptide (<100) PG/ML Total Protein 7.9 (6.4-8.2) g/dL Albumin 3.6 (3.4-5.0) g/dL Globulin 4.3 H (2.6-4.0) g/dL Albumin/Globulin Ratio 0.8 L (0.9-1.6) 07/21/18 07/22/18 07/22/18 Range/Units 22:46 05:45 05:45 WBC (4.0-11.0) K/uL RBC (4.50-5.90) M/uL Hgb (13.0-17.0) g/dL Hct (38.0-50.0) % MCV (80.0-98.0) fL MCH (27.0-32.0) pg MCHC (31.0-37.0) g/dL RDW Std Deviation (28.0-62.0) fl RDW Coeff of Mile (11.0-15.0) % Plt Count (150-400) K/uL MPV (7.40-12.00) fL Neut % (Auto) (48.0-80.0) % Lymph % (Auto) (16.0-40.0) % Boyd % (Auto) (0.0-15.0) % Eos % (Auto) (0.0-7.0) % Baso % (Auto) (0.0-1.5) % Neut # (Auto) (1.4-5.7) K/uL Lymph # (Auto) (0.6-2.4) K/uL Boyd # (Auto) (0.0-0.8) K/uL Eos # (Auto) (0.0-0.7) K/uL Baso # (Auto) (0.0-0.1) K/uL Nucleated RBC % /100WBC Nucleated RBCs # K/uL Sodium (136-148) mmol/L Potassium (3.5-5.1) mmol/L Chloride (98-107) mmol/L Carbon Dioxide (21.0-32.0) mmol/L BUN (7.0-18.0) mg/dL Creatinine (0.8-1.3) mg/dL Est Cr Clr Drug Dosing mL/min Estimated GFR (MDRD) ml/min Glucose (74-106) mg/dL Hemoglobin A1c 6.5 H (4.5-6.2) % Calcium (8.5-10.1) mg/dL Total Bilirubin (0.2-1.0) mg/dL AST (15-37) IU/L ALT (14-63) IU/L Alkaline Phosphatase (46-116) U/L Troponin I < 0.050 < 0.050 (0.000-0.056) ng/mL B-Natriuretic Peptide (<100) PG/ML Total Protein (6.4-8.2) g/dL Albumin (3.4-5.0) g/dL Globulin (2.6-4.0) g/dL Albumin/Globulin Ratio (0.9-1.6) Med Orders - Current: Current Medications Acetaminophen (Tylenol) 650 mg PO Q4H PRN PRN Reason: Pain (Mild 1-3)/fever Albuterol/Ipratropium (Duoneb 3.0-0.5 Mg/3 Ml) 3 ml NEB Q4HRRT PRN PRN Reason: Shortness Of Breath/wheezing Aspirin (Aspirin) 81 mg PO DAILY [facility] Docusate Sodium (Colace) 100 mg PO BID PRN PRN Reason: Constipation Enoxaparin Sodium (Lovenox) 40 mg SUBCUT Q24H [facility] Last Admin: 07/21/18 18:39 Dose: 40 mg Ibuprofen (Motrin) 800 mg PO Q6H PRN PRN Reason: Pain (mild 1-3) Ketorolac Tromethamine (Toradol) 30 mg IV Q6H PRN PRN Reason: Pain (moderate 4-6) Morphine Sulfate (Morphine) 2 mg IVPUSH Q2H PRN PRN Reason: Pain (severe 7-10) Stop: 07/22/18 18:05 Nitroglycerin (Nitrostat) 0.4 mg SL Q5M PRN PRN Reason: Chest Pain Last Admin: 07/21/18 17:43 Dose: 0.4 mg Nitroglycerin (Nitrostat) 0.4 mg SL Q5M PRN PRN Reason: Chest Pain Ondansetron HCl (Zofran Odt) 4 mg PO Q4H PRN PRN Reason: nausea, able to take PO Ondansetron HCl (Zofran) 4 mg IVPUSH Q4H PRN PRN Reason: Nausea Polyethylene Glycol (Miralax) 17 gm PO DAILY PRN PRN Reason: Constipation Sodium Chloride (Saline Flush) 10 ml FLUSH ASDIRECTED PRN PRN Reason: Keep Vein Open Last Admin: 07/21/18 16:14 Dose: 10 ml Sodium Chloride (Saline Flush) 2.5 ml FLUSH ASDIRECTED PRN PRN Reason: Keep Vein Open Last Admin: 07/21/18 16:14 Dose: 2.5 ml Temazepam (Restoril) 15 mg PO BEDTIME PRN PRN Reason: Sleep Discontinued Medications Albuterol (Proventil Neb Soln) 2.5 mg NEB ONETIME ONE Stop: 07/21/18 18:08 Last Admin: 07/21/18 18:50 Dose: 2.5 mg Aspirin (Aspirin) 324 mg PO ONETIME ONE Stop: 07/21/18 17:32 Last Admin: 07/21/18 17:41 Dose: 324 mg Labetalol HCl (Normodyne) 0 mg IVPUSH NOW ONE; Protocol Stop: 07/21/18 18:14 Last Admin: 07/21/18 18:30 Dose: Not Given Metoprolol Succinate (Toprol Xl) 25 mg PO ONETIME ONE Stop: 07/21/18 17:38 Last Admin: 07/21/18 17:51 Dose: 25 mg - Exam Quality Assessment: Denies: Supplemental Oxygen General: Reports: Alert, Oriented, Cooperative, No Acute Distress HEENT: Reports: Pupils Equal, Pupils Reactive, EOMI, Mucous Membr. Moist/[place] Neck: Reports: Supple, Trachea Midline Lungs: Reports: Clear to Auscultation, Normal Respiratory Effort Cardiovascular: Reports: Regular Rate, Regular Rhythm GI/Abdominal Exam: Normal Bowel Sounds, Soft, Non-Tender, No Organomegaly, No Distention (Male) Exam: Deferred Rectal (Males) Exam: Deferred Back Exam: Reports: Normal Inspection, Full Range of Motion Extremities: Normal Inspection, Normal Range of Motion, Non-Tender, No Pedal Edema Skin: Reports: Warm, Dry, Intact Neurological: Reports: No New Focal Deficit Psy/Mental Status: Reports: Alert, Normal Affect, Normal Mood
[2018-07-22] MEDS ORDERED: Aspirin 81 MG Tab.Chew PO SCH (09:00)
--- NOTE | 2018-07-24 15:34 | ECHO ---
EXAM DATE: 07/21/18 PATIENT'S AGE: 48 The echocardiogram report can be seen in this patient's EMR (Electronic Medical Record) in the Reports section. The report has also been scanned into PACs. [email or web address]
== END 2018-07-22 10:15 | disposition home or self-care (01) ==
LOC: MW.ED 15:59 → MW.MS 18:08
PROVIDERS: ADMIT Internal Medicine; ATTEND Internal Medicine
DX: R07.9 Chest pain, unspecified (principal); I16.0 Hypertensive urgency; I10 Essential (primary) hypertension; E66.01 Morbid (severe) obesity due to excess calories; R73.03 Prediabetes; E78.2 Mixed hyperlipidemia; Z87.891 Personal history of nicotine dependence; Z79.82 Long term (current) use of aspirin; Z79.899 Other long term (current) drug therapy
CPT/HCPCS: 36415; 71045; 80053; 80061; 83036; 83880; 84443; 84484; 85025; 93005; 93306; 94640; 96372; 99285; A9270; G0378; J1650

== ENCOUNTER 2022-12-14 10:08 | Day surgery (SDC) | payer BC ==
[~2022-12-14 10:08] MED LIST: Lactated Ringers 1,000 ML IV SCH
[2022-12-14] MEDS ORDERED: propofoL 50 ML ONE (10:50)
[2022-12-14] MEDS ORDERED: Lidocaine 1% 5 ML VIAL ONE (11:00)
== END 2022-12-14 11:50 | disposition home or self-care (01) ==
LOC: MW.SDS 10:08
PROVIDERS: ATTEND Surgery
DX: Z12.11 Encounter for screening for malignant neoplasm of colon (principal); K57.30 Diverticulosis of large intestine without perforation or abscess without bleeding; F41.9 Anxiety disorder, unspecified; I10 Essential (primary) hypertension; E78.00 Pure hypercholesterolemia, unspecified; F32.A Depression, unspecified; J45.20 Mild intermittent asthma, uncomplicated; E66.9 Obesity, unspecified; G47.33 Obstructive sleep apnea (adult) (pediatric); E55.9 Vitamin D deficiency, unspecified; R73.03 Prediabetes; Z79.899 Other long term (current) drug therapy; Z87.891 Personal history of nicotine dependence; Z98.890 Other specified postprocedural states; Z90.49 Acquired absence of other specified parts of digestive tract; Z68.42 Body mass index [BMI] 45.0-49.9, adult
CPT/HCPCS: 45378; J2704; J7120; J3490